=== PATIENT | female | born 1965 | race Caucasian/White ===

== ENCOUNTER 2018-07-26 16:58 | Emergency (ER) | payer BC ==
[~2018-07-26] VITALS: Ht 177.8 cm; Wt 103.4 kg
--- NOTE | 2018-07-26 17:42 | PHYS DOC ---
Past History Past Medical History: GERD, High Cholesterol Past Surgical History: Cholecystectomy Alcohol Use: Occasionally Drug Use: None Adult General Chief Complaint Chief Complaint: MECHANICAL FALL HPI HPI 52-year-old female presents with fall. Patient tripped over the edge of the sidewalk and struck her face on the ground. She denies loss of consciousness. She has a hematoma above her left eye and left hand pain. She states she is unsure how her hand at the ground but it is swollen and painful with any motion. She denies nasal pain though she did have a bloody nose that has resolved. She has abrasion on her left knee. She states being able to walk and is not concerned about the knee. She denies fever or chills. Review of Systems Review of Systems Constitutional: Denies fever or chills [] Eyes: Periorbital trauma[] HENT: Denies nasal congestion or sore throat [] Respiratory: Denies cough or shortness of breath [] Cardiovascular: No additional information not addressed in HPI [] GI: Denies abdominal pain, nausea, vomiting, bloody stools or diarrhea [] : Denies dysuria or hematuria [] Musculoskeletal: Hand pain[] Integument: Denies rash or skin lesions [] Neurologic: Denies headache, focal weakness or sensory changes [] Endocrine: Denies polyuria or polydipsia [] All other systems were reviewed and found to be within normal limits, except as documented in this note. Allergies Allergies Allergies Coded Allergies Type Severity Reaction Last Updated Verified Sulfa (Sulfonamide Antibiotics) Allergy Intermediate 07/26/18 Yes Physical Exam Physical Exam Constitutional: Well developed, well nourished, no acute distress, non-toxic appearance. [] HENT: Normocephalic, atraumatic, bilateral external ears normal, oropharynx moist, no oral exudates, nose normal. [] Eyes: PERRLA, EOMI, conjunctiva normal, no discharge. [] Neck: Normal range of motion, no tenderness, supple, no stridor. [] Cardiovascular:Heart rate regular rhythm, no murmur [] Lungs & Thorax: Bilateral breath sounds clear to auscultation [] Abdomen: Bowel sounds normal, soft, no tenderness, no masses, no pulsatile masses. [] Skin: Abrasion of the Cipro orbital area left eye, abrasion of left knee, abrasion of the upper lip and nose[] Back: No tenderness, no CVA tenderness. [] Extremities: Swelling, mild ecchymosis, tenderness of the left dorsal hand over fourth and fifth metacarpals.[] Neurologic: Alert and oriented X 3, normal motor function, normal sensory function, no focal deficits noted. [] Psychologic: Affect normal, judgement normal, mood normal. [] Current Patient Data Vital Signs Vital Signs Date Time Temp Pulse Resp B/P (MAP) Pulse Ox O2 Delivery O2 Flow Rate FiO2 07/26/18 17:18 97.6 87 18 98 Room Air EKG EKG [] Radiology/Procedures Radiology/Procedures [] Impressions: My interpretation: The patient's hand x-rays negative for fracture. She has a contusion. Her other injuries are of a hematoma above the left eye and superficial abrasions. I will give her Bradford 5/325 for pain. She is stable for discharge at this time. Course & Med Decision Making Course & Med Decision Making Pertinent Labs and Imaging studies reviewed. (See chart for details) [] Dragon Disclaimer Dragon Disclaimer This electronic medical record was generated, in whole or in part, using a voice recognition dictation system. Departure Departure: Referrals: PCP,NO (PCP) Scripts Hydrocodone Bit/Acetaminophen (NORCO 5-325 TABLET) 1 Each Tablet 1 TAB PO PRN Q6HRS PRN for PAIN, #10 TAB 0 Refills Prov: ZACH BARRIOS DO 07/26/18 ZACH BARRIOS DO Jul 26, 2018 17:42
[2018-07-26] MEDS ORDERED: HYDR-3165 PO (18:28)
[2018-07-26 18:39] VITALS: BP 158/86
--- NOTE | 2018-07-27 00:41 | RAD ---
Three-view left hand radiographs 07/26/2018 CLINICAL HISTORY: Fall with left hand pain. Portable PA, lateral and oblique digital radiographs of the left hand were obtained. Acute comminuted fractures are seen involving the proximal metaphysis/diaphysis of the proximal phalanges of the left fourth and fifth fingers. The alignment of the fracture fragments is near-anatomic. No extension to the MCP joints is seen. No additional fracture is noted. Mild degenerative changes are seen scattered throughout the interphalangeal joints of the left hand. IMPRESSION: Acute fractures of the proximal phalanges of the left fourth and fifth fingers as outlined above. Electronically signed by: Kris Peña MD (07/27/2018 12:37 AM) [id number]
== END 2018-07-26 18:38 | disposition home or self-care (01) ==
LOC: ER 16:58
DX: S05.12XA Contusion of eyeball and orbital tissues, left eye, initial encounter (principal); S60.222A Contusion of left hand, initial encounter; S80.212A Abrasion, left knee, initial encounter; S00.511A Abrasion of lip, initial encounter; S00.31XA Abrasion of nose, initial encounter; K21.9 Gastro-esophageal reflux disease without esophagitis; E78.00 Pure hypercholesterolemia, unspecified; Z88.2 Allergy status to sulfonamides; W01.198A Fall on same level from slipping, tripping and stumbling with subsequent striking against other object, initial encounter; Y93.89 Activity, other specified; Y92.480 Sidewalk as the place of occurrence of the external cause; Y99.8 Other external cause status
CPT/HCPCS: 73130; 99283